=== PATIENT | male | born 1985 | race Caucasian/White ===

== ENCOUNTER 2019-02-05 18:08 | Emergency (ER) | payer OTHER ==
--- NOTE | 2019-02-05 18:26 | EDM.PDOC ---
ED HPI GENERAL MEDICAL PROBLEM - General Chief Complaint: Upper Extremity Injury/Pain Stated Complaint: PT HURT LT THUMB Time Seen by Provider: 02/05/19 18:26 Source of Information: Reports: Patient History Limitations: Reports: No Limitations - History of Present Illness INITIAL COMMENTS - FREE TEXT/NARRATIVE: HISTORY AND PHYSICAL: History of present illness: Patient is a 33-year-old male presents to the ED with complaint of left thumb pain. He states he fell last week and his thumb bent backwards. He think he dislocated it as he had to pop it back in to place. He has continued to have pain since then. He denies any numbness or tingling. Review of systems: As per history of present illness and below otherwise all systems reviewed and negative. Past medical history: As per history of present illness and as reviewed below otherwise noncontributory. Surgical history: As per history of present illness and as reviewed below otherwise noncontributory. Social history: No reported history of drug or alcohol abuse. Family history: As per history of present illness and as reviewed below otherwise noncontributory. Physical exam: General: Patient sitting comfortably in no acute distress and nontoxic appearing HEENT: Atraumatic, normocephalic, pupils reactive, negative for conjunctival pallor or scleral icterus, mucous membranes moist, throat clear, neck supple, nontender, trachea midline. No meningeal signs. Lungs: Clear to auscultation, breath sounds equal bilaterally, chest nontender. Heart: S1S2, regular, negative for clicks, rubs, or overt murmur. Abdomen: Soft, nondistended, nontender. Negative for masses or hepatosplenomegaly. Negative for costovertebral tenderness. No rigidity, rebound , guarding. Pelvis: Stable nontender. Genitourinary: Deferred. Rectal: Deferred. Extremities: Atraumatic, negative for cords or calf pain. Neurovascular unremarkable. He is able to flex thumb at the DIP and CMP but limited due to pain. Neuro: Awake, alert, oriented. Cranial nerves II through XII unremarkable. Cerebellum unremarkable. Motor and sensory unremarkable throughout. Exam nonfocal. Notes: Diagnostics: Left thumb x-ray Therapeutics: None Prescriptions: None Impression: Left thumb pain Plan: 1. Ice, elevate, and motrin as instructed 2. Follow up with primary care provider 3. Return to ED as needed as discussed Definitive disposition and diagnosis as appropriate pending reevaluation and review of above. Left Head Pain Score (Numeric/FACES): 2 - Related Data Allergies Allergy/AdvReac Type Severity Reaction Status Date / Time No Known Allergies Allergy Verified 02/05/19 18:20 Home Meds: Home Meds . [No Known Home Meds] 06/21/14 [History] Past Medical History - Past Health History Medical/Surgical History: Denies Medical/Surgical History Other Genitourinary History: vasectomy (06/11/2015) Review of Systems - Review of Systems Review Of Systems: ROS reveals no pertinent complaints other than HPI. ED EXAM, GENERAL - Physical Exam Exam: See Below (see dictation) Course - Vital Signs Last Recorded V/S: Last Vital Signs Temp 97.6 F 02/05/19 18:20 Pulse 65 02/05/19 19:46 Resp 16 02/05/19 19:46 BP 121/69 02/05/19 19:46 Pulse Ox 95 02/05/19 19:46 Departure - Departure Time of Disposition: 19:14 Disposition: Home, Self-Care 01 Condition: Good Clinical Impression: Pain of left thumb - Discharge Information Instructions: Hand Pain Referrals: PCP,None [Primary Care Provider] - Forms: ED Department Discharge Additional Instructions: The following information is given to patients seen in the emergency department who are being discharged to home. This information is to outline your options for follow-up care. We provide all patients seen in our emergency department with a follow-up referral. The need for follow-up, as well as the timing and circumstances, are variable depending upon the specifics of your emergency department visit. If you don't have a primary care physician on staff, we will provide you with a referral. We always advise you to contact your personal physician following an emergency department visit to inform them of the circumstance of the visit and for follow-up with them and/or the need for any referrals to a consulting specialist. The emergency department will also refer you to a specialist when appropriate. This referral assures that you have the opportunity for follow-up care with a specialist. All of these measure are taken in an effort to provide you with optimal care, which includes your follow-up. Under all circumstances we always encourage you to contact your private physician who remains a resource for coordinating your care. When calling for follow-up care, please make the office aware that this follow-up is from your recent emergency room visit. If for any reason you are refused follow-up, please contact the [facility] Emergency Department at and asked to speak to the emergency department charge nurse. [facility] Primary Care [address] [place] [address] [id number] [address] [address] 1. Ice, elevate, and motrin as instructed 2. Follow up with primary care provider 3. Return to ED as needed as discussed
--- NOTE | 2019-02-05 19:12 | CR ---
INDICATION: Trauma. Painful thumb. Dislocation 2-3 weeks ago. Interval reduction. TECHNIQUE: Three views of the left thumb. FINDINGS: There is no evidence for acute fracture, dislocation, or erosive change. No soft tissue swelling. IMPRESSION: Negative left thumb. Dictated by Salvador York MD @ Feb 05 2019 7:11PM Signed by Dr. Salvador York @ Feb 05 2019 7:11PM
[2019-02-05 19:46] VITALS: BP 121/69
== END 2019-02-05 19:47 | disposition home or self-care (01) ==
LOC: MW.ED 18:08
DX: M79.645 Pain in left finger(s) (principal)
CPT/HCPCS: 73140-26-FA; 73140-FA; 99283; 99283-25

== ENCOUNTER 2019-04-17 21:09 | Emergency (ER) | payer OTHER ==
--- NOTE | 2019-04-17 21:22 | EDM.PDOC ---
ED HPI GENERAL MEDICAL PROBLEM - General Chief Complaint: Upper Extremity Injury/Pain Stated Complaint: PT HAS INSECT BITE ON RT ARM Time Seen by Provider: 04/17/19 21:18 Source of Information: Reports: Patient History Limitations: Reports: No Limitations - History of Present Illness INITIAL COMMENTS - FREE TEXT/NARRATIVE: HISTORY AND PHYSICAL: History of present illness: The patient is a 33-year-old male who presents to the emergency room with complaints of right upper extremity cellulitis. He states that yesterday afternoon he was stung by a wasp in the antecubital space and had progressively gotten more swollen and erythematous. Area has now extended to the mid forearm and distal bicep. Denies taking any medications at home. Denies any drug or alcohol abuse. Patient denies any fever, chills, headache, change in vision, syncope or near syncope. Denies any chest pain, back pain, shortness of breath or cough. Denies any GI or symptoms. Patient has been eating and drinking appropriately. Review of systems: As per history of present illness and below otherwise all systems reviewed and negative. Past medical history: As per history of present illness and as reviewed below otherwise noncontributory. Surgical history: As per history of present illness and as reviewed below otherwise noncontributory. Social history: See social history for further information Family history: As per history of present illness and as reviewed below otherwise noncontributory. Physical exam: General: Well developed and well nourished 33-year-old male. Alert and oriented. Nontoxic appearing and in no acute distress. HEENT: Atraumatic, normocephalic, pupils equal and reactive bilaterally, negative for conjunctival pallor or scleral icterus, mucous membranes moist, trachea midline. No drooling or trismus noted. No meningeal signs. No hot potato voice noted. Lungs: Clear to auscultation, breath sounds equal bilaterally, chest nontender. Heart: S1S2, regular rate and rhythm without overt murmur Abdomen: Soft, nondistended, nontender. Skin: Patient has erythema to the mid forearm that extends to the distal bicep. There is a pinpoint area in which she states was where he was stung by a bee. Area is diffuse, nonfluctuant and non-indurated. Remainder of skin is intact, warm, dry. No lesions or rashes noted. Extremities: Atraumatic, moves all extremities per self without difficulty or deficits, negative for cords or calf pain. Neurovascular unremarkable. Neuro: Awake, alert, oriented. Cranial nerves II through XII unremarkable. Cerebellum unremarkable. Motor and sensory unremarkable throughout. Exam nonfocal. Notes: Discussed with patient the possible need for labs and admission due to the extent of the cellulitis. Patient declines. He states he would like to try outpatient therapy first. We discussed signs and symptoms that would prompt him to return to the emergency room. Cellulitic border was outlined with a surgical marker. Supportive care measures were reviewed and discussed. Voices understanding and is agreeable to plan of care. Denies any further questions or concerns at this time. Diagnostics: Declines Therapeutics: Declines Prescription: Bacrtim DS Medrol Dosepak Impression: Cellulitis Plan: 1. Keep the skin clean and dry. Please avoid poking or squeezing at the site. Continue to monitor for signs of improvement. If the area becomes more red or exceeds outside the marker, return to the ED as we discussed. 2. Take the antibiotic as prescribed. Tylenol and/or ibuprofen as needed for pain management. 3. Follow-up with your primary care provider as discussed. Definitive disposition and diagnosis as appropriate pending reevaluation and review of above. right arm Pain Score (Numeric/FACES): 2 - Related Data Allergies Allergy/AdvReac Type Severity Reaction Status Date / Time No Known Allergies Allergy Verified 02/05/19 18:20 Home Meds: Home Meds Sulfamethoxazole/Trimethoprim [Bactrim Ds Tablet] 1 each PO BID 10 Days #20 tablet 04/17/19 [Rx] methylPREDNISolone [Medrol] 1 dose PO DAILY 6 Days #1 dospk 04/17/19 [Rx] Past Medical History - Past Health History Medical/Surgical History: Denies Medical/Surgical History Other Genitourinary History: vasectomy (06/11/2015) - Infectious Disease History Infectious Disease History: Reports: Chicken Pox Social & Family History - Family History Family Medical History: Noncontributory - Caffeine Use Caffeine Use: Reports: Coffee, Energy Drinks, Soda Review of Systems - Review of Systems Review Of Systems: ROS reveals no pertinent complaints other than HPI. ED EXAM, GENERAL - Physical Exam Exam: See Below (See dictation) Course - Vital Signs Last Recorded V/S: Last Vital Signs Temp 97.8 F 04/17/19 21:15 Pulse 84 04/17/19 21:15 Resp 16 04/17/19 21:15 BP 132/78 04/17/19 21:15 Pulse Ox 95 04/17/19 21:15 Departure - Departure Time of Disposition: 21:21 Disposition: Home, Self-Care 01 Clinical Impression: Cellulitis Qualifiers: Site of cellulitis: extremity Site of cellulitis of extremity: upper extremity Laterality: right Qualified Code(s): L03.113 - Cellulitis of right upper limb - Discharge Information Prescriptions: methylPREDNISolone [Medrol] 1 dose PO DAILY 6 Days #1 dospk Sulfamethoxazole/Trimethoprim [Bactrim Ds Tablet] 1 each PO BID 10 Days #20 tablet Instructions: Cellulitis, Adult, [id number] Referrals: PCP,None [Primary Care Provider] - Forms: ED Department Discharge Additional Instructions: The following information is given to patients seen in the emergency department who are being discharged to home. This information is to outline your options for follow-up care. We provide all patients seen in our emergency department with a follow-up referral. The need for follow-up, as well as the timing and circumstances, are variable depending upon the specifics of your emergency department visit. If you don't have a primary care physician on staff, we will provide you with a referral. We always advise you to contact your personal physician following an emergency department visit to inform them of the circumstance of the visit and for follow-up with them and/or the need for any referrals to a consulting specialist. The emergency department will also refer you to a specialist when appropriate. This referral assures that you have the opportunity for follow-up care with a specialist. All of these measure are taken in an effort to provide you with optimal care, which includes your follow-up. Under all circumstances we always encourage you to contact your private physician who remains a resource for coordinating your care. When calling for follow-up care, please make the office aware that this follow-up is from your recent emergency room visit. If for any reason you are refused follow-up, please contact the [facility] Emergency Department at and asked to speak to the emergency department charge nurse. [facility] Primary Care [address] [place] [id number] [facility] [address] [place] [address] 1. Keep the skin clean and dry. Please avoid poking or squeezing at the site. Continue to monitor for signs of improvement. If the area becomes more red or exceeds outside the marker, return to the ED as we discussed. 2. Take the antibiotic as prescribed. Please use Benadryl as directed over the next 2-3 days. Tylenol and/or ibuprofen as needed for pain management. 3. Follow-up with your primary care provider as discussed.
[2019-04-17 21:39] VITALS: BP 136/72; PULSE 87
== END 2019-04-17 21:35 | disposition home or self-care (01) ==
LOC: MW.ED 21:09
DX: L03.113 Cellulitis of right upper limb (principal)
CPT/HCPCS: 99282; 99283

== ENCOUNTER 2023-07-04 09:10 | Day surgery (SDC) | payer OTHER ==
[~2023-07-04 09:10] MED LIST: Acetaminophen 1,000 MG in Premix Bag 1 BAG IV SCH; Lactated Ringers 1,000 ML IV SCH; Pregabalin 75 MG Cap PO SCH
[2023-07-04] MEDS ORDERED: Propofol 200 MG/20 ML SDV ONE (09:15)
[2023-07-04] MEDS ORDERED: fentaNYL 250 MCG/5 ML SDV ONE (09:16)
[2023-07-04] MEDS ORDERED: Morphine 10 MG/ML SDV ONE (09:16)
[2023-07-04] MEDS ORDERED: Ropivacaine 0.5% 5 MG/ML 30 ML SDV ONE (09:16)
[2023-07-04] MEDS ORDERED: Water For Injection, Sterile 20 ML ONE (09:19)
[2023-07-04] MEDS ORDERED: Naloxone 0.4 MG/ML SDV IVPUSH PRN (09:43)
[2023-07-04] MEDS ORDERED: HYDROmorphone 1 MG/ML Syringe IVPUSH PRN (09:43)
[2023-07-04] MEDS ORDERED: Morphine 2 MG/ML SYRINGE IVPUSH PRN (09:43)
[2023-07-04] MEDS ORDERED: Ondansetron 4 MG/2 ML SDV IVPUSH PRN (09:43)
[2023-07-04] MEDS ORDERED: droPERidol 5 MG/2 ML SDV IVPUSH PRN (09:43)
[2023-07-04] MEDS ORDERED: Albuterol 0.083% 2.5 MG/3 ML Neb Soln NEB PRN (09:43)
[2023-07-04] MEDS ORDERED: Metoclopramide 10 MG/2 ML SDV IVPUSH PRN (09:43)
[2023-07-04] MEDS ORDERED: fentaNYL 50 MCG/ML SDV IVPUSH PRN (09:43)
[2023-07-04] MEDS ORDERED: Bupivacaine 0.5% 30 ML SDV ONE (10:25)
[2023-07-04] MEDS ORDERED: ceFAZolin 2 GM Vial ONE (10:49)
[2023-07-04] MEDS ORDERED: Ondansetron 4 MG/2 ML SDV ONE (11:13)
[2023-07-04] MEDS ORDERED: Dexamethasone 4 MG/ML 5 ML MDV ONE (11:13)
[2023-07-04] MEDS ORDERED: Ketorolac 30 MG/ML SDV ONE (11:13)
[2023-07-04 13:26] VITALS: BP 109/87; PULSE 83
[2023-07-04] MEDS ORDERED: ceFAZolin 2 GM in Sodium Chloride 0.9% 50 ML IV ONE (21:52)
== END 2023-07-04 13:05 | disposition home or self-care (01) ==
LOC: MW.SDS 09:10
PROVIDERS: ATTEND Surgery
DX: K42.9 Umbilical hernia without obstruction or gangrene (principal); F17.290 Nicotine dependence, other tobacco product, uncomplicated; E66.9 Obesity, unspecified; Z68.30 Body mass index [BMI] 30.0-30.9, adult; Z91.030 Bee allergy status
CPT/HCPCS: 49591; A9270; J0131; J0690; J1100; J1885; J2270; J2405; J2704; J2795; J3010; J3490; J7030; J7120; 00830; 64488; J0665